=== PATIENT | male | born 1960 | race Caucasian/White ===

== ENCOUNTER → 2022-06-09 | Outpatient (CLI) | payer OTHER ==
--- NOTE | 2022-06-09 12:08 | XR ---
EXAMINATION TYPE: XR knee complete LT DATE OF EXAM: 06/09/2022 CLINICAL HISTORY: Contusion injury with pain. TECHNIQUE: Three views of the left knee are obtained. COMPARISON: None. FINDINGS: There is no acute fracture/dislocation evident in left knee. [id number] tricompartme nt joint space loss and spurring. Curvilinear spur anterior superior patella at the distal quadriceps tendon insertion. The overlying soft tissue appears unremarkable. IMPRESSION: As above.
== END | disposition home or self-care (01) ==
LOC: RADXRMAIN 11:35
PROVIDERS: ATTEND Emergency Medicine
DX: M25.562 Pain in left knee (principal)